=== PATIENT | female | born 1990 | race Caucasian/White ===

== ENCOUNTER 2020-02-07 10:17 | Emergency (ER) | payer MEDICAID, SELFPAY ==
[~2020-02-07] VITALS: Ht 152.4 cm; Wt 90.7 kg
[2020-02-07 10:22] VITALS: BP 148/91
[2020-02-07 11:34] LABS: HEMATOCRIT 30.5 % (36-48); HEMOGLOBIN 9.8 g/dL (12.0-16.0); MEAN CORPUSCULAR HEMOGLOBIN 25 pg (27-31); MEAN CORPUSCULAR VOLUME 77.5 fL (80-94); RED BLOOD CELL COUNT(AUTO) 3.94 MIL/uL (4.20-5.40)
[2020-02-07 11:35] LABS: BASOPHILS % (AUTO) 0.4 % (0.0-2.0); EOSINOPHILS % (AUTO) 1.4 % (0.0-4.0); LYMPHOCYTES % (AUTO) 11.3 % (20.5-51.1); MEAN CORPUSCULAR HGB CONC 32 g/dL (33-37); MONOCYTES % (AUTO) 7.7 % (1.7-9.3); NEUTROPHILS # (AUTO) 10.3 K/uL (1.8-7.7); NEUTROPHILS % (AUTO) 79.2 % (42.2-75.2); PLATELET COUNT (AUTO) 470 K/uL (140-450); RED CELL DISTRIBUTION WIDTH 20.7 % (11.6-13.7)
[2020-02-07 11:36] LABS: EOSINOPHILS # (AUTO) 0.2 K/uL (0-0.4); LYMPHOCYTES # (AUTO) 1.5 K/uL (2.5-16.5)
[2020-02-07 11:37] LABS: APPEARANCE,URINE SLIGHTLY HAZY (CLEAR); COLOR,URINE YELLOW (YELLOW)
[2020-02-07 11:38] LABS: BILIRUBIN,URINE NEGATIVE (NEGATIVE); BLOOD, URINE 3+ (NEGATIVE); LEUKOCYTE ESTERASE ,URINE NEGATIVE (NEGATIVE); NITRITE, URINE NEGATIVE (NEGATIVE); UGLUCOSE NEGATIVE (NEGATIVE)
[2020-02-07 11:39] LABS: RBC,URINE 20-50 /HPF (0-5); WBC,URINE 0-5 /HPF (0-5)
[2020-02-07 11:40] LABS: PROTHROMBIN TIME 9.1 secs (10.8-13.4)
[2020-02-07 11:42] LABS: ALBUMIN 2.2 g/dL (3.4-5.0); ANION GAP 18.1 (8-16); CARBON DIOXIDE 21.7 mmol/L (21-32); CREATININE 0.8 mg/dL (0.6-1.3); POTASSIUM 3.8 mmol/L (3.5-5.1); TOTAL BILIRUBIN 0.3 mg/dL (0.0-1.0)
[2020-02-07 11:44] LABS: LACTATE DEHYDROGENASE 259 U/L (81-234)
[2020-02-07 12:00] LABS: C-REACTIVE PROTEIN QUANT 7.2 mg/dL (0.0-0.9)
[2020-02-07 14:07] VITALS: BP 137/75
== END 2020-02-07 14:03 | disposition home or self-care (01) ==
LOC: MED 10:17
DX: R05 Cough (principal); R06.02 Shortness of breath; J02.9 Acute pharyngitis, unspecified; Z48.89 Encounter for other specified surgical aftercare
CPT/HCPCS: 36415; 71045; 71275; 80053; 81001; 81025; 82550; 82553; 82728; 83605; 83615; 83880; 84484; 85025; 85379; 85384; 85610; 85730; 86140; 87040; 87086; 87426; 87804; 93005; 99285; Q0092; Q9967; U0003

== ENCOUNTER 2020-10-01 00:07 | Emergency (ER) | payer OTHER, SELFPAY ==
[~2020-10-01] VITALS: Ht 152.4 cm; Wt 63.5 kg
[2020-10-01 00:12] VITALS: BP 126/82
[2020-10-01] MEDS ORDERED: IBUPROFEN 600 MG TAB PO ONE (01:05)
[2020-10-01] MEDS ORDERED: IBUP-1842 PO (02:58)
[2020-10-01] MEDS ORDERED: ACET-10509 PO (02:58)
[2020-10-01 03:30] VITALS: BP 126/82
[2020-10-01 09:07] LABS: BILIRUBIN,URINE 2+ (NEGATIVE); BLOOD, URINE 3+ (NEGATIVE); COLOR,URINE YELLOW (YELLOW); LEUKOCYTE ESTERASE ,URINE NEGATIVE (NEGATIVE); NITRITE, URINE NEGATIVE (NEGATIVE); UGLUCOSE TRACE (NEGATIVE)
[2020-10-01 09:10] LABS: APPEARANCE,URINE CLOUDY (CLEAR)
[2020-10-01 09:24] LABS: WBC,URINE 0-5 /HPF (0-5)
[2020-10-01 09:25] LABS: URINE AMORPHOUS URATE 1+ /HPF (None Seen)
== END 2020-10-01 03:30 | disposition home or self-care (01) ==
LOC: MED 00:07
DX: B34.9 Viral infection, unspecified (principal); Z20.822 Contact with and (suspected) exposure to COVID-19; Z79.899 Other long term (current) drug therapy
CPT/HCPCS: 81001; 81025; 87804; 99283

== ENCOUNTER 2022-07-28 04:55 | Emergency (ER) | payer OTHER ==
[~2022-07-28] VITALS: Ht 152.4 cm; Wt 78.9 kg
[~2022-07-28 04:55] MED LIST: ACET-10509 PO; IBUP-1842 PO
[2022-07-28 04:59] VITALS: BP 116/73
--- NOTE | 2022-07-28 05:05 | NUR ---
Patient taken to bed 11.
--- NOTE | 2022-07-28 05:19 | NUR ---
Patient received on bed lying comfortably and awake. Alert and oriented x4. No acute distress. Complained of throat pain with scale of 9/10. Denies cough, fever or shortness of breath. Respirations even and unlabored.
[2022-07-28] MEDS ORDERED: DEXAMETHASONE 10 MG/ML VIAL IM ONE (05:35)
[2022-07-28] MEDS ORDERED: ACETAMINOPHEN EXTRA STRENGTH 500 MG TAB PO ONE (05:35)
[2022-07-28] MEDS ORDERED: KETOROLAC 30 MG/ML VIAL IM ONE (05:35)
[2022-07-28] MEDS ORDERED: BENZ-300 PO (06:06)
[2022-07-28] MEDS ORDERED: ACET-10509 PO (06:06)
[2022-07-28] MEDS ORDERED: IBUP-2213 PO (06:06)
[2022-07-28 06:23] VITALS: BP 121/69
--- NOTE | 2022-07-28 06:23 | NUR ---
Patient discharged with v/s stable. Written and verbal after care instructions given and explained. Patient alert, oriented and verbalized understanding of instructions. Ambulatory with steady gait. All questions addressed prior to discharge. ID band removed. Patient advised to follow up with PMD. Rx of Tylenol, Ibuprofen, Cepacol given. Patient educated on indication of medication including possible reaction and side effects. Opportunity to ask questions provided and answered.
== END 2022-07-28 06:23 | disposition home or self-care (01) ==
LOC: MED 04:55
DX: J02.9 Acute pharyngitis, unspecified (principal); Z79.899 Other long term (current) drug therapy; Z79.1 Long term (current) use of non-steroidal anti-inflammatories (NSAID)
CPT/HCPCS: 96372; 99284; J1100; J1885

== ENCOUNTER 2023-06-13 08:09 | Emergency (ER) | payer OTHER ==
[~2023-06-13] VITALS: Ht 152.4 cm; Wt 80.7 kg
[~2023-06-13 08:09] MED LIST changes: +BENZ-300 PO; +IBUP-2213 PO
[2023-06-13 08:24] VITALS: BP 122/79; PULSE 109; RESP 19; TEMP 98.5; O2SAT 97
[2023-06-13] MEDS ORDERED: ONDA8TAB87 PO (09:01)
[2023-06-13] MEDS ORDERED: IBUP-2213 PO (09:01)
[2023-06-13] MEDS ORDERED: CIPR500T4 PO (09:01)
[2023-06-13] MEDS: KETOROLAC 60 MG/2 ML VIAL IM ONE (09:02)
== END 2023-06-13 09:18 | disposition home or self-care (01) ==
LOC: MED 08:09
DX: R10.13 Epigastric pain (principal); R11.2 Nausea with vomiting, unspecified; R19.7 Diarrhea, unspecified; E11.9 Type 2 diabetes mellitus without complications; Z79.899 Other long term (current) drug therapy; Z79.4 Long term (current) use of insulin
CPT/HCPCS: 81002; 81025; 96372; 99283; J1885